=== PATIENT | male | born 1970 | race African-American/Black ===

== ENCOUNTER 2018-11-15 21:32 | Inpatient (IN) | payer SELFPAY ==
[~2018-11-15] VITALS: Ht 177.8 cm; Wt 61.2 kg
[2018-11-15] MEDS ORDERED: EPINEPHRINE 1 MG/1 ML AMP ONE (21:40)
[2018-11-15] MEDS ORDERED: methylPREDNISolone SOD SUCC 125 MG/2 ML VIAL ONE (21:40)
[2018-11-15] MEDS ORDERED: diphenhydrAMINE 50 MG/1 ML VIAL ONE (21:40)
[2018-11-15] MEDS ORDERED: FAMOTIDINE. 20 MG/2 ML VIAL IV ONE ×2 (21:41→21:45)
[2018-11-15] MEDS ORDERED: IV NORMAL SALINE 1000 ML BAG IV ONE (21:45)
[2018-11-15] MEDS ORDERED: EPINEPHRINE 1 MG/1 ML AMP SQ ONE (21:45)
[2018-11-15] MEDS ORDERED: diphenhydrAMINE 50 MG/1 ML VIAL IV ONE (21:45)
[2018-11-15] MEDS ORDERED: methylPREDNISolone SOD SUCC 125 MG/2 ML VIAL IV ONE (21:45)
[2018-11-15 21:51] LABS: BASOPHILS % (AUTO) 0.3 % (0.0-2.0); EOSINOPHILS % (AUTO) 0.5 % (0.0-7.0); HEMATOCRIT 41.4 % (36.7-47.1); HEMOGLOBIN 13.2 g/dL (12.5-16.3); LYMPHOCYTES # (AUTO) 3.6 K/uL (20.0-40.0); LYMPHOCYTES % (AUTO) 56.7 % (20.5-51.5); MEAN CORPUSCULAR HEMOGLOBIN 27.3 uug (23.8-33.4); MEAN CORPUSCULAR HGB CONC 32 g/dL (32.5-36.3); MEAN CORPUSCULAR VOLUME 85.9 fL (73.0-96.2); MONOCYTES # (AUTO) 0.5 K/uL (2.0-10.0); MONOCYTES % (AUTO) 7.7 % (0.0-11.0); NEUTROPHILS # (AUTO) 2.2 K/uL (1.8-8.9); NEUTROPHILS % (AUTO) 34.8 % (38.5-71.5); PLATELET COUNT (AUTO) 255 K/uL (152-348); RED BLOOD CELL COUNT(AUTO) 4.83 MIL/uL (4.06-5.63); WHITE BLOOD COUNT (AUTO) 6.3 K/uL (3.6-10.2)
[2018-11-15 22:00] LABS: CREATININE 0.8 mg/dL (0.6-1.3); POTASSIUM 3.8 mmol/L (3.5-5.1)
[2018-11-15 22:06] LABS: BILIRUBIN,DIRECT 0.1 mg/dL (0.0-0.2); BILIRUBIN,TOTAL 0.2 mg/dL (0.2-1.0); TOTAL PROTEIN, SERUM 9.5 g/dL (6.4-8.2)
[2018-11-15 22:15] LABS: LYMPHOCYTES % (MANUAL) 51 % (20-40); MONOCYTES % (MANUAL) 12 % (2-10); NEUTROPHILS % (MANUAL) 36 % (42-75); REACTIVE LYMPHOCYTES 1 % (0-0)
[2018-11-15 23:41] VITALS: BP 125/78
[2018-11-16 00:01] VITALS: BP 125/78
[2018-11-16] MEDS ORDERED: IV NS 1000 ML 1,000 ML IV PRN (01:45)
[2018-11-16] MEDS ORDERED: ACETAMINOPHEN 325 MG TABLET PO PRN (01:45)
[2018-11-16] MEDS ORDERED: diphenhydrAMINE 25 MG CAP PO ONE (01:45)
[2018-11-16] MEDS ORDERED: diphenhydrAMINE 50 MG/1 ML VIAL IV PRN (01:45)
[2018-11-16] MEDS ORDERED: diphenhydrAMINE 50 MG CAPSULE PO PRN (01:45)
[2018-11-16] MEDS ORDERED: ONDANSETRON 4 MG/2 ML VIAL IV PRN (01:45)
[2018-11-16 04:00] VITALS: BP 115/70
[2018-11-16] MEDS: methylPREDNISolone SOD SUCC 125 MG/2 ML VIAL IV SCH ×2 (05:34→14:00)
[2018-11-16 06:36] LABS: HEMATOCRIT 39.6 % (36.7-47.1); HEMOGLOBIN 12.7 g/dL (12.5-16.3); MEAN CORPUSCULAR HEMOGLOBIN 27.8 uug (23.8-33.4); MEAN CORPUSCULAR HGB CONC 32 g/dL (32.5-36.3); MEAN CORPUSCULAR VOLUME 86.5 fL (73.0-96.2); PLATELET COUNT (AUTO) 235 K/uL (152-348); RED BLOOD CELL COUNT(AUTO) 4.58 MIL/uL (4.06-5.63)
[2018-11-16 06:55] LABS: CREATININE 0.8 mg/dL (0.6-1.3); MAGNESIUM 1.7 mg/dL (1.8-2.4); PHOSPHOROUS 2.8 mg/dL (2.5-4.9); POTASSIUM 4.4 mmol/L (3.5-5.1)
[2018-11-16 07:30] VITALS: BP 112/73
[2018-11-16 07:33] LABS: BAND % (MANUAL) 1 % (0-10); LYMPHOCYTES % (MANUAL) 8 % (20-40); NEUTROPHILS % (MANUAL) 91 % (42-75)
[2018-11-16] MEDS ORDERED: FAMOTIDINE 20 MG TABLET PO SCH (09:00)
[2018-11-16] MEDS ORDERED: MAGNESIUM OXIDE 400 MG TABLET PO ONE (11:30)
[2018-11-16 11:36] VITALS: BP 111/76
[2018-11-16] MEDS ORDERED: FAMO20TA8 PO (12:57)
== END 2018-11-16 14:10 | disposition home or self-care (01) | DRG 916 ==
LOC: ER 21:32 → TELE-TD 23:09
PROVIDERS: ADMIT Nurse Practitioner Acute Care; ATTEND Internal Medicine
DX: T78.3XXA Angioneurotic edema, initial encounter (principal); Z68.1 Body mass index [BMI] 19.9 or less, adult; T78.05XA Anaphylactic reaction due to tree nuts and seeds, initial encounter; F17.210 Nicotine dependence, cigarettes, uncomplicated; R01.1 Cardiac murmur, unspecified; Z88.0 Allergy status to penicillin; R73.9 Hyperglycemia, unspecified; T38.0X5A Adverse effect of glucocorticoids and synthetic analogues, initial encounter; Y92.538 Other ambulatory health services establishments as the place of occurrence of the external cause
CPT/HCPCS: 36415; 83735; 84100; 85025; A4663; G0378; J0171; J1200; J2930; J3490; J7030